=== PATIENT | female | born 1990 | race Caucasian/White ===

== ENCOUNTER 2020-01-01 09:43 | Emergency (ER) | payer OTHER ==
--- NOTE | 2020-01-01 09:50 | PDOC ---
Rapid Medical Evaluation Chief Complaint: Back Pain Time Seen by Provider: 01/01/20 09:48 Medical Evaluation: 01/01/20 09:48 CC: low back pain radiating down left leg, present x 1 year but not to this extent, denies taking meds since tuesday, incontinence or saddle anesthesia eXAM: + paraspinous tenderness and left sciatica tenderness, ambulatory Plan: lumbar xray Discharge Disposition - Diagnosis Low back pain - Discharge Dispostion Condition at time of disposition: Stable - Referrals - Patient Instructions - Post Discharge Activity
[2020-01-01] MEDS ORDERED: KETOROLAC TROMETHAMINE 60 MG/2 ML VIAL IM ONE (10:12)
[2020-01-01] MEDS ORDERED: METHOCARBAMOL 500 MG TABLET PO ONE (10:12)
[2020-01-01] MEDS ORDERED: KETOROLAC TROMETHAMINE 60 MG/2 ML VIAL ONE (10:16)
--- NOTE | 2020-01-01 10:16 | PDOC ---
History of Present Illness - General Chief Complaint: Back Pain Stated Complaint: BACK PAIN Time Seen by Provider: 01/01/20 09:48 History Source: Patient Exam Limitations: Clinical Condition - History of Present Illness Initial Comments: 01/01/20 10:13 Patient with past medical history of chronic back pain presented with complaint of 3-day history of worsening lower back pain which is worse with ambulation or sitting from laying position. Denies any new trauma or injury. Report pain radiating to back of left thigh. Denies urinary frequency, dysuria, burning with urination, hematuria, nausea or vomiting. Patient has not taken anything for pain. LMP last week. Denies any other symptoms. Denies urinary or fecal incontinence or saddle paresthesia. Occurred: reports: other (3 days) Past History - Medical History Allergies/Adverse Reactions: Allergies Allergy/AdvReac Type Severity Reaction Status Date / Time No Known Allergies Allergy Verified 01/01/20 10:12 Home Medications: Ambulatory Orders Methocarbamol [Robaxin -] 500 mg PO BID #14 tablet 01/01/20 Methylprednisolone [Medrol Dose Pierre] 4 mg PO ASDIR #21 tablet 01/01/20 COPD: No - Immunization History Immunization Up to Date: No - Psycho-Social/Smoking History Smoking History: Never smoked Have you smoked in the past 12 months: No Information on smoking cessation initiated: No - Substance Abuse Hx (Audit-C & DAST Scrn) How often the patient has a drink containing alcohol: Never Score: In Men: 4 or > Positive; In Women: 3 or > Positive: 0 Screen Result (Pos requires Nsg. Audit-10AR): Negative In the last yr the pt used illegal drug/Rx for NonMed reason: No Score: Yes response is considered Positive: 0 Screen Result (Positive result requires Nsg. DAST-10): Negative Review of Systems - Review of Systems Able to Perform ROS?: Yes Is the patient limited Faroese proficient: No Constitutional: No: Fever, Malaise HEENTM: No: Symptoms Reported Respiratory: No: Symptoms reported Cardiac (ROS): No: Symptoms Reported ABD/GI: No: Symptoms Reported Musculoskeletal: Yes: Symptoms Reported, See HPI, Back Pain, Muscle Pain Integumentary: No: Symptoms Reported Neurological: No: Symptoms reported, Numbness, Paresthesia, Tingling All Other Systems: Reviewed and Negative *Physical Exam - Vital Signs Last Vital Signs Temp Pulse Resp BP Pulse Ox 98.7 F 89 18 108/67 99 01/01/20 09:46 01/01/20 09:46 01/01/20 09:46 01/01/20 09:46 01/01/20 09:46 - Physical Exam 01/01/20 10:15 GENERAL: Well developed, well nourished. Awake and alert in mild acute distress. PULMONARY: No evidence of respiratory distress. MUSCULOSKELETAL : Moderate tenderness over posterior paravertebral muscle of lumbar spine of L4-S2 on bilateral sides. No midline tenderness. No bony deformities SKIN: Warm and dry. Normal capillary refill. No rashes. NEUROLOGICAL: Alert, awake, appropriate. No motor deficits in the lower extremities. Gait is normal without ataxia. PSYCHIATRIC: Cooperative. Good eye contact. Appropriate mood and affect. General Appearance: Yes: Nourished, Appropriately Dressed, Mild Distress Medical Decision Making - Medical Decision Making 01/01/20 10:14 Patient with past medical history of chronic back pain presented with complaint of 3-day history of worsening lower back pain which is worse with ambulation or sitting from laying position. Denies any new trauma or injury. Report pain radiating to back of left thigh. Denies urinary frequency, dysuria, burning with urination, hematuria, nausea or vomiting. Patient has not taken anything for pain. LMP last week. Denies any other symptoms Exam significant for moderate tenderness of bilateral paravertebral muscle of lumbar spine of L4-S2. No midline tenderness. Negative straight leg raise. Patient in moderate distress from back pain. Symptoms likely back spasm. X-ray of lumbar spine ordered to rule out acute abnormality. Toradol 60 mg IM Robaxin 500 mg p.o. ordered for pain. Reassess after 20 minutes 01/01/20 11:22 X-ray of lumbosacral shows straightening of the spine consistent with spasm and advised with no acute abnormality. Patient reported provement of pain with Toradol Robaxin. Patient stable for discharge on naproxen as needed for pain and Robaxin for spasm with advised to do hot compresses with orthopedic spine follow-up as needed Discharge - Discharge Information Problems reviewed: Yes Clinical Impression/Diagnosis: Low back pain Qualifiers: Chronicity: acute Back pain laterality: bilateral Sciatica presence: with sciatica Sciatica laterality: sciatica of left side Qualified Code(s): M54.42 - Lumbago with sciatica, left side Condition: Improved Disposition: HOME - Admission No - Additional Discharge Information Prescriptions: Methylprednisolone [Medrol Dose Pierre] 4 mg PO ASDIR #21 tablet Methocarbamol [Robaxin -] 500 mg PO BID #14 tablet - Follow up/Referral Referrals: Otoniel Wilson MD, [facility] [Staff Physician] - - Patient Discharge Instructions Patient Printed Discharge Instructions: DI for Back Spasm Additional Instructions: X-ray of your back shows no acute abnormality and it shows spasm of the back. Your pain is likely caused by muscle spasm. Take prescribed medication as pr escribed for pain. Apply heat to lower back as needed for pain. Follow-up referred to orthopedist specialist if symptoms does not improve in 4 days - Post Discharge Activity
[2020-01-01] MEDS ORDERED: METHOCARBAMOL 500 MG TABLET ONE (10:17)
[2020-01-01 11:09] VITALS: BP 108/67; PULSE 89; TEMP 98.7; BMI 30.9
== END 2020-01-01 11:21 | disposition home or self-care (01) ==
LOC: JER 09:43
PROC: 3E0233Z Introduction of Anti-inflammatory into Muscle, Percutaneous Approach (ICD-10-PCS; principal; 2020-01-01)
DX: M54.42 Lumbago with sciatica, left side (principal)
CPT/HCPCS: 72100-TC-FY; 99285-25

== ENCOUNTER 2020-10-21 11:25 | Emergency (ER) | payer OTHER ==
[2020-10-21 11:36] VITALS: BP 108/59; PULSE 69; TEMP 98.6; BMI 29.2
== END 2020-10-21 14:00 | disposition home or self-care (01) ==
LOC: JER 11:25
DX: J02.9 Acute pharyngitis, unspecified (principal); Z11.52 Encounter for screening for COVID-19
CPT/HCPCS: 87880; 99283-25; C9803; U0003; U0005

== ENCOUNTER 2020-11-15 12:51 | Emergency (ER) | payer OTHER ==
[2020-11-15 13:05] VITALS: BP 103/63; PULSE 72; TEMP 98.5; BMI 28.3
== END 2020-11-15 14:45 | disposition home or self-care (01) ==
LOC: JER 12:51 → JERFT 12:51
DX: L25.9 Unspecified contact dermatitis, unspecified cause (principal)
CPT/HCPCS: 99283-25

== ENCOUNTER 2023-01-06 07:10 | Inpatient (IN) | payer OTHER ==
[2023-01-06] MEDS ORDERED: METHYLERGONOVINE MALEATE 0.2 MG/1 ML AMP IM PRN (07:44)
[2023-01-06] MEDS ORDERED: IBUPROFEN 600 MG TABLET (FP) PO PRN (07:44)
[2023-01-06] MEDS ORDERED: ACETAMINOPHEN 325 MG TABLET (FP) PO PRN (07:44)
[2023-01-06 08:25] VITALS: BMI 33.7
[2023-01-06] MEDS: ELECTROLYTE-148 SOLN 1,000 ML IV SCH (08:30)
[2023-01-06] MEDS ORDERED: ELECTROLYTE-148 SOLN 500 ML IV ONE (09:30)
[2023-01-06] MEDS ORDERED: CITRIC ACID/SODIUM CITRATE 30 ML UNIT-DOSE CUP PO ONE (09:30)
[2023-01-06 09:57] LABS: BASO % 0.3 % (0-2.0); EOS % 0.7 % (0-4.5); HEMATOCRIT 33.5 % (32.4-45.2); HEMOGLOBIN 11.2 GM/dL (10.7-15.3); LYMPH % 17.1 % (8-40); MCH 32.6 pg (25.7-33.7); MCHC 33.5 g/dl (32.0-36.0); MEAN CELL VOLUME 97.5 fl (80-96); MEAN PLT VOLUME 8.9 fl (7.5-11.1); MONO % 5.7 % (3.8-10.2); NEUT % 76.2 % (42.8-82.8); PLATELET COUNT 225 10^3/uL (134-434); RBC 3.43 M/mm3 (3.60-5.2); RDW 13.8 % (11.6-15.6); WHITE BLOOD COUNT 7.7 K/mm3 (4.0-10.0)
[2023-01-06 10:06] LABS: INR 0.93 (0.83-1.09); PROTHROMBIN TIME (PATIENT) 10.8 SEC (9.7-13.0)
[2023-01-06 10:09] LABS: ACTIVATED PTT 27.2 SECONDS (25.2-36.5)
[2023-01-06 10:13] LABS: POTASSIUM 3.9 mmol/L (3.5-5.1)
[2023-01-06 10:15] LABS: BLOOD UREA NITROGEN 7.2 mg/dL (7-18); CALCIUM 8.4 mg/dL (8.5-10.1)
[2023-01-06 10:18] LABS: CREATININE 0.4 mg/dL (0.55-1.3)
[2023-01-06] MEDS ORDERED: PHENYLEPHRINE HCL 10 MG/1 ML SINGLE DOSE VIAL ONE ×2 (10:35→10:36)
[2023-01-06] MEDS ORDERED: ONDANSETRON 4 MG/2 ML VIAL ONE (10:36)
[2023-01-06] MEDS ORDERED: ceFAZolin SODIUM 1 GM VIAL ONE (10:36)
[2023-01-06] MEDS ORDERED: morphine SULFATE/PF 1 MG/2 ML (2cc Syringe - QUVA) ONE (10:38)
[2023-01-06] MEDS ORDERED: METOCLOPRAMIDE HCL INJECTION 10 MG/2 ML VIAL ONE (10:55)
[2023-01-06] MEDS ORDERED: DEXAMETHASONE SOD PHOSPHATE 4 MG/1 ML VIAL ONE (10:55)
[2023-01-06] MEDS ORDERED: OXYTOCIN 10 UNITS/ML VIAL ONE (10:56)
[2023-01-06] MEDS ORDERED: KETOROLAC TROMETHAMINE 30 MG/1 ML VIAL ONE (11:12)
[2023-01-06] MEDS ORDERED: morphine SULFATE/PF 1 MG/2 ML (2cc Syringe - QUVA) IT ONE (11:36)
[2023-01-06] MEDS ORDERED: ONDANSETRON 4 MG/2 ML VIAL IVPUSH PRN (11:36)
[2023-01-06 12:12] LABS: CORD BASE EXCESS -3.7 mmol/L (0-2); CORD HCO3 23.6 mmHg (20-29); CORD PCO2 51.8 mmHg (30-78); CORD pH 7.277 (7.14-7.44)
[2023-01-06] MEDS ORDERED: IBUPROFEN 800 MG/8 ML IJ IVPB ONE (12:12)
[2023-01-06] MEDS ORDERED: OXYTOCIN 20 UNITS in 0.9% NS 20 UNIT/1,000 ML INFUS.BAG IV ONE (12:13)
[2023-01-06 12:16] LABS: CORD BASE EXCESS -0.3 mmol/L (0-2); CORD HCO3 26.2 mmHg (20-29); CORD PCO2 49.6 mmHg (30-78); CORD pH 7.34 (7.14-7.44)
[2023-01-06] MEDS: OXYTOCIN 20 UNITS in 0.9% NS 20 UNIT/1,000 ML INFUS.BAG IV SCH (12:20)
[2023-01-06] MEDS: IBUPROFEN 800 MG/8 ML IJ IVPB SCH ×3 (12:25→23:41)
[2023-01-06 13:52] VITALS: RESP 18
[2023-01-06] MEDS ORDERED: oxyCODONE HCL 5 MG TABLET PO PRN ×2 (19:44)
[2023-01-06] MEDS: SIMETHICONE 80 MG TAB.CHEW (FP) PO PRN (23:41)
[2023-01-07] MEDS: OXYTOCIN 20 UNITS in 0.9% NS 20 UNIT/1,000 ML INFUS.BAG IV SCH ×2 (00:48→07:45)
[2023-01-07] MEDS: IBUPROFEN 800 MG/8 ML IJ IVPB SCH ×2 (07:22→15:26)
[2023-01-07] MEDS ORDERED: BISACODYL 10 MG SUPP.RECT RC PRN (07:44)
[2023-01-07] MEDS: ELECTROLYTE-148 SOLN 1,000 ML IV SCH (07:45)
[2023-01-07 08:06] LABS: BASO % 0.2 % (0-2.0); EOS % 0.3 % (0-4.5); HEMATOCRIT 27.6 % (32.4-45.2); HEMOGLOBIN 9.3 GM/dL (10.7-15.3); LYMPH % 13.7 % (8-40); MCH 32.9 pg (25.7-33.7); MCHC 33.7 g/dl (32.0-36.0); MEAN CELL VOLUME 97.6 fl (80-96); MEAN PLT VOLUME 9.2 fl (7.5-11.1); MONO % 5.5 % (3.8-10.2); NEUT % 80.3 % (42.8-82.8); PLATELET COUNT 189 10^3/uL (134-434); RBC 2.83 M/mm3 (3.60-5.2); RDW 13.6 % (11.6-15.6); WHITE BLOOD COUNT 12.5 K/mm3 (4.0-10.0)
[2023-01-07] MEDS: PRENATAL VITAMINS W/ FOLIC ACID TABLET (FP) PO SCH (08:59)
[2023-01-07] MEDS: FERROUS SO4 325 MG TABLET (FP) PO SCH ×2 (08:59→21:11)
[2023-01-07] MEDS ORDERED: DIPHTH,PERTUSS(ACELL),TET 0.5 ML DISP.SYRIN IM ONE (10:00)
[2023-01-07] MEDS: SIMETHICONE 80 MG TAB.CHEW (FP) PO PRN (21:11)
[2023-01-07] MEDS: SENNOSIDES/DOCUSATE COMBO (SENNA PLUS) TABLET (UD) PO PRN (21:11)
[2023-01-07] MEDS: IBUPROFEN 600 MG TABLET (FP) PO PRN (21:12)
[2023-01-08] MEDS: SIMETHICONE 80 MG TAB.CHEW (FP) PO PRN (00:03)
[2023-01-08] MEDS: PRENATAL VITAMINS W/ FOLIC ACID TABLET (FP) PO SCH (09:56)
[2023-01-08] MEDS: FERROUS SO4 325 MG TABLET (FP) PO SCH ×2 (09:56→21:24)
[2023-01-08] MEDS: SENNOSIDES/DOCUSATE COMBO (SENNA PLUS) TABLET (UD) PO PRN (21:24)
[2023-01-09] MEDS: SIMETHICONE 80 MG TAB.CHEW (FP) PO PRN (04:03)
[2023-01-09] MEDS: IBUPROFEN 600 MG TABLET (FP) PO PRN (04:03)
[2023-01-09 07:43] LABS: BASO % 0.3 % (0-2.0); EOS % 2.3 % (0-4.5); HEMATOCRIT 28.2 % (32.4-45.2); HEMOGLOBIN 9.6 GM/dL (10.7-15.3); LYMPH % 16.3 % (8-40); MCH 33.2 pg (25.7-33.7); MEAN CELL VOLUME 97.7 fl (80-96); MEAN PLT VOLUME 9.1 fl (7.5-11.1); MONO % 6.5 % (3.8-10.2); NEUT % 74.6 % (42.8-82.8); PLATELET COUNT 203 10^3/uL (134-434); RBC 2.89 M/mm3 (3.60-5.2); RDW 13.9 % (11.6-15.6); WHITE BLOOD COUNT 7.9 K/mm3 (4.0-10.0)
[2023-01-09 08:29] VITALS: BP 97/52; PULSE 64; TEMP 98
[2023-01-09] MEDS: PRENATAL VITAMINS W/ FOLIC ACID TABLET (FP) PO SCH (09:19)
[2023-01-09] MEDS: FERROUS SO4 325 MG TABLET (FP) PO SCH (09:19)
== END 2023-01-09 13:45 | disposition home or self-care (01) | DRG 540 ==
LOC: JLDR 07:10 → J3W 13:30
PROVIDERS: ADMIT Obstetrics & Gynecology; ATTEND Obstetrics & Gynecology
PROC: 10D00Z1 Extraction of Products of Conception, Low, Open Approach (ICD-10-PCS; principal; 2023-01-06)
DX: O32.8XX0 Maternal care for other malpresentation of fetus, not applicable or unspecified (principal); Z3A.39 39 weeks gestation of pregnancy; Z37.0 Single live birth
CPT/HCPCS: 36415; 36600; 80048; 82803; 85025; 85610; 85730; 86780; 86850; 86900; 86901; 88307-TC; 90715; 94010